=== PATIENT | female | born 1975 | race Two or more races ===

== ENCOUNTER 2024-06-09 11:59 | Emergency (ER) | payer OTHER ==
[2024-06-09 12:31] VITALS: BP 132/90; PULSE 86; RESP 17; TEMP 97.7; BMI 28.3
== END 2024-06-09 13:23 | disposition home or self-care (01) ==
LOC: JERFT 11:59
PROC: 09C1XZZ Extirpation of Matter from Left External Ear, External Approach (ICD-10-PCS; principal; 2024-06-09)
DX: T16.2XXA Foreign body in left ear, initial encounter (principal); X58.XXXA Exposure to other specified factors, initial encounter
CPT/HCPCS: 69200; 99282-25